=== PATIENT | male | born 1950 | race Caucasian/White ===

== ENCOUNTER → 2017-01-27 | Outpatient (CLI) | payer MEDICARE, OTHER | END | disposition home or self-care (01) | LOC: GMAB 11:11 | PROVIDERS: ATTEND Family Medicine | DX: Z12.5 Encounter for screening for malignant neoplasm of prostate (principal); I10 Essential (primary) hypertension | CPT/HCPCS: 84443; G0103 ==

== ENCOUNTER 2017-03-30 12:48 | Emergency (ER) | payer MEDICARE, OTHER ==
[2017-03-30 13:08] VITALS: BP 132/79; TEMP 97.9; O2SAT 97
--- NOTE | 2017-03-30 13:20 | ED.PDOC ---
History of Present Illness - General Chief Complaint: Lower Extremity Injury Stated Complaint: Left leg pain Time Seen by Provider: 03/30/17 13:09 Source: patient, RN notes reviewed, Vital Signs reviewed Exam Limitations: no limitations - History of Present Illness Initial Comments: Patient comes in with c/o left leg pain for 2 days. Pain extends from foot to hip and her reports his leg feels swollen. In addition to the pain he is having cramping in his thigh. + nausea and feeling "woozy". No KESSLER, CP, SOB, abd pain or vomiting. No numbness, tingling or weakness. He spoke to the home health nurse who recommended that he come in to get checked for a blood clot. Occurred: other - Thursday, 2 days ago Pain - Lower Extremity: moderate: Left Thigh/Hip, Left Leg, Left Knee, Left Calf , Left Ankle, Left Foot Method of Injury: unknown Improving Factors: nothing Worsening Factors: nothing Allergies/Adverse Reactions: Allergies NO KNOWN ALLERGY Allergy (Verified 03/30/17 13:06) Home Medications: Ambulatory Orders ALPRAZolam [Xanax] 0.25 mg PO BEDTIME 11/30/14 Aspirin [Aspirin Childrens] 81 mg PO DAILY 11/30/14 Atorvastatin Calcium [Lipitor] 80 mg PO DAILY 11/30/14 Duloxetine HCl [Cymbalta] 60 mg PO DAILY 11/30/14 Furosemide [Lasix] 20 mg PO DAILY 11/30/14 Gabapentin [Neurontin] 900 mg PO TID 11/30/14 Lisinopril 2.5 mg PO DAILY 11/30/14 Meloxicam [Mobic] 7.5 mg PO DAILY 11/30/14 Acetaminophen W/ Codeine [Tylenol w/Codeine 300-30 mg] 1 tab PO TID PRN Bisacodyl [Dulcolax] 5 mg PO DAILY 06/11/16 Coenzyme Q10 (Ubidecarenone) [Co Q-10] 100 mg PO DAILY 06/11/16 Diphenhydramine HCl (Sleep) [Zzzquil] 50 mg PO BEDTIME 06/11/16 Diphenhydramine HCl [Hm Allergy Relief] 25 mg PO DAILY 06/11/16 Esomeprazole Magnesium [Nexium 24Hr] 20 mg PO DAILY 06/11/16 Misc Natural Products [Osteo Bi-Flex Advanced Do] 1 tab PO DAILY 06/11/16 Multiple Vitamins W/ Minerals [Centrum Silver] 1 ea PO DAILY 06/11/16 Probiotic Product [CodeHS] 1 cap PO DAILY 06/11/16 Valproic Acid 500 mg PO BID 06/11/16 Ciprofloxacin [Cipro] 500 mg PO BID #20 tab 07/20/16 Ondansetron [Zofran Odt] 4 mg PO Q6HRS #30 tab 07/20/16 metroNIDAZOLE [Flagyl] 500 mg PO Q8HRS #30 tab 07/20/16 Review of Systems - Review of Systems Constitutional: States: no symptoms reported Respiratory: States: no symptoms reported Cardiology: States: no symptoms reported Gastrointestinal/Abdominal: States: nausea. Denies: abdominal pain, vomiting Musculoskeletal: States: see HPI Skin: States: no symptoms reported Neurological: States: see HPI. Denies: headache, numbness, paresthesia, tingling, weakness All other Systems: No Change from Baseline Past Medical History (General) - Patient Medical History Hx Seizures: Yes Hx Stroke: No Hx Dementia: No Hx of COPD: No Hx Cardiac Disorders: Yes - [place] 3 years ago, 2 stents placed Hx Congestive Heart Failure: No Hx Hypertension: Yes Hx Diabetes: No Hx Gastroesophageal Reflux: Yes Hx Cancer: No Hx Hepatitis C: No Hx MRSA: Yes Surgical History: other - Vaccination History Hx Tetanus, Diphtheria Vaccination: Yes Hx Influenza Vaccination: Yes Hx Pneumococcal Vaccination: Yes - Social History Hx Tobacco Use: Yes Hx Chewing Tobacco Use: No Hx Alcohol Use: No Hx Substance Use: No Hx Substance Use Treatment: No Hx Depression: No Hx Physical Abuse: No Hx Emotional Abuse: No Hx Suspected Abuse: No - Activities of Daily Living Hospice Agency (if applicable):: None - Female History Patient is a Female of Child Bearing Age (10 -59 yrs old): No Patient : No Family Medical History - Family History Grandparents Family History: Unknown Physical Exam - Physical Exam General Appearance: Alert, Comfortable, No apparent distress, Well Developed, Well Groomed, Well Hydrated, Well Nourished Neck: normal inspection Cardiovascular/Respiratory: regular rate, rhythm, no M/R/G, normal peripheral pulses, no JVD, normal breath sounds, no respiratory distress Gastrointestinal/Abdominal: no organomegaly, tenderness - Mild LLQ tenderness w/ o guarding or rebound Thigh/Hip: soft tissue tenderness - inner and anterior thigh and groin Leg: soft tissue tenderness - calf tenderness, equivical Lyndon sign - no pain but felt tight/swollen to patient Knee: normal inspection, non-tender, no evidence of injury, normal ROM Ankle: normal inspection, non-tender, no evidence of injury, normal ROM Foot: normal inspection, non-tender, no evidence of injury, normal ROM Neuro/Tendon: normal sensation, normal motor functions, normal tendon functions Mental Status: alert, oriented x 3 Skin: normal color, warm/dry Comments: Vital Signs 03/30/17 12:55 Temperature 97.9 F Pulse Rate [ 72 pulse ox] Respiratory 20 Rate Blood Pressure 132/79 [Right Arm] O2 Sat by Pulse 97 Oximetry Progress - Progress Progress: 03/30/17 14:27 Discussed labs and sono results with patient. He would like to go home and rest. Will d/c home with follow up with PCP. - Results/Orders Results/Orders: Laboratory Tests 03/30/17 03/30/17 03/30/17 13:30 13:30 13:30 WBC 14.7 H RBC 4.47 L Hgb 14.5 Hct 43.4 MCV 97.2 H MCH 32.4 H MCHC 33.3 RDW 14.0 Plt Count 378 MPV 8.1 Absolute Neuts (auto) 11.90 H Absolute Lymphs (auto) 1.60 Absolute Monos (auto) 1.10 H Absolute Eos (auto) 0.00 Absolute Basos (auto) 0.00 Neutrophils % 80.8 H Lymphocytes % 11.1 L Monocytes % 7.6 Eosinophils % 0.2 L Basophils % 0.3 D-Dimer, Quantitative 238 H* Sodium 141 Potassium 4.7 Chloride 105 Carbon Dioxide 29 Anion Gap 11.7 L BUN 21 H Creatinine 1.01 BUN/Creatinine Ratio 20.8 H Random Glucose 101 Serum Osmolality 284.4 Calcium 9.1 Total Bilirubin 0.3 AST 50 H ALT 57 Alkaline Phosphatase 69 Serum Total Protein 6.2 L Albumin 3.6 Globulin 2.6 Albumin/Globulin Ratio 1.4 - EKG/XRAY/CT Xray Comments: LLE Doppler: negative per Radiologist Departure - Departure Clinical Impression: Leg pain, diffuse Qualifiers: Laterality: left Qualified Code(s): M79.605 - Pain in left leg Time of Disposition: 14:28 Disposition: Discharge to Home or Self Care Condition: Good Departure Forms: ED Discharge - Pt. Copy, Patient Portal Self Enrollment Instructions: DI for Leg Pain Diet: resume usual diet Activity: increase activity as tolerated Referrals: Joe Castro MD [Primary Care Provider] - 1-2 Weeks Home Medications: Ambulatory Orders ALPRAZolam [Xanax] 0.25 mg PO BEDTIME 11/30/14 Aspirin [Aspirin Childrens] 81 mg PO DAILY 11/30/14 Atorvastatin Calcium [Lipitor] 80 mg PO DAILY 11/30/14 Duloxetine HCl [Cymbalta] 60 mg PO DAILY 11/30/14 Furosemide [Lasix] 20 mg PO DAILY 11/30/14 Gabapentin [Neurontin] 900 mg PO TID 11/30/14 Lisinopril 2.5 mg PO DAILY 11/30/14 Meloxicam [Mobic] 7.5 mg PO DAILY 11/30/14 Acetaminophen W/ Codeine [Tylenol w/Codeine 300-30 mg] 1 tab PO TID PRN Bisacodyl [Dulcolax] 5 mg PO DAILY 06/11/16 Coenzyme Q10 (Ubidecarenone) [Co Q-10] 100 mg PO DAILY 06/11/16 Diphenhydramine HCl (Sleep) [Zzzquil] 50 mg PO BEDTIME 06/11/16 Diphenhydramine HCl [Hm Allergy Relief] 25 mg PO DAILY 06/11/16 Esomeprazole Magnesium [Nexium 24Hr] 20 mg PO DAILY 06/11/16 Misc Natural Products [Osteo Bi-Flex Advanced Do] 1 tab PO DAILY 06/11/16 Multiple Vitamins W/ Minerals [Centrum Silver] 1 ea PO DAILY 06/11/16 Probiotic Product [[employer] [facility]] 1 cap PO DAILY 06/11/16 Valproic Acid 500 mg PO BID 06/11/16 Ciprofloxacin [Cipro] 500 mg PO BID #20 tab 07/20/16 Ondansetron [Zofran Odt] 4 mg PO Q6HRS #30 tab 07/20/16 metroNIDAZOLE [Flagyl] 500 mg PO Q8HRS #30 tab 07/20/16
--- NOTE | 2017-03-30 14:22 | US ---
EXAM DESCRIPTION: Venous,Lower Extremity LT CLINICAL HISTORY: 66 years, Male, LLE pain feels swollen COMPARISON: None. FINDINGS: Left common femoral, superficial femoral, deep femoral, popliteal, posterior tibial and peroneal veins identified. Appropriate flow compressibility and augmentation. IMPRESSION: No evidence deep venous thrombosis left lower extremity. Electronically signed by: Taiwo Garcia MD 03/30/2017 2:20 PM CDT
== END 2017-03-30 14:36 | disposition home or self-care (01) ==
LOC: ER 12:48
DX: M79.605 Pain in left leg (principal); Z87.891 Personal history of nicotine dependence; I25.2 Old myocardial infarction; I10 Essential (primary) hypertension; K21.9 Gastro-esophageal reflux disease without esophagitis; Z98.61 Coronary angioplasty status; Z79.899 Other long term (current) drug therapy; Z79.82 Long term (current) use of aspirin

== ENCOUNTER → 2017-03-31 | Outpatient (CLI) | payer MEDICARE, OTHER | END | disposition home or self-care (01) | LOC: GMAB 14:47 | PROVIDERS: ATTEND Family Medicine | DX: M79.605 Pain in left leg (principal) ==

== ENCOUNTER → 2017-04-29 | Outpatient (CLI) | payer MEDICARE, OTHER | END | disposition home or self-care (01) | LOC: GRHH 10:43 | PROVIDERS: ATTEND Family Medicine | DX: R79.89 Other specified abnormal findings of blood chemistry (principal); I10 Essential (primary) hypertension ==

== ENCOUNTER 2017-08-10 11:40 | Emergency (ER) | payer MEDICARE, OTHER ==
[2017-08-10 12:08] VITALS: TEMP 99
[2017-08-10] MEDS: predniSONE 10 MG TAB PO ONE (13:11)
[2017-08-10] MEDS: HYDROcodone 10MG/APAP 325MG 1 EA TAB PO ONE (13:11)
--- NOTE | 2017-08-10 13:13 | ED.PDOC ---
History of Present Illness - General Chief Complaint: General Stated Complaint: knots on neck, sore throat Time Seen by Provider: 08/10/17 12:28 Source: patient, family Exam Limitations: no limitations - History of Present Illness Initial Comments: PT COMES TO THE ED FOR EVAUATION OF PAINFUL SORES TO THE RIGHT SIDE OF SCALP, RIGHT POSTERIOR NECK AND RIGHT LATERAL NECK REGION X 1 DAY. PT ALSO REPORTS SORE THROAT THAT BEGAN YESTERDAY. PT IS CURRENTLY GETTING VANCOMYCIN THROUGH A PICC LINE FOR A KNEE INFECTION THAT WAS OPERATED ON 1 WEEK AGO. PT WEARING VAC DRESSING TO RIGHT KNEE CURRENTLY. Timing/Duration: 24 hours Severity: moderate Improving Factors: nothing Worsening Factors: other - TOUCHING LESIONS Associated Symptoms: other - PARESTHESIAS TO THE RIGHT ARM. Allergies/Adverse Reactions: Allergies NO KNOWN ALLERGY Allergy (Verified 03/30/17 13:06) Home Medications: Ambulatory Orders ALPRAZolam [Xanax] 0.25 mg PO BEDTIME 11/30/14 Aspirin [Aspirin Childrens] 81 mg PO DAILY 11/30/14 Atorvastatin Calcium [Lipitor] 80 mg PO DAILY 11/30/14 Duloxetine HCl [Cymbalta] 60 mg PO DAILY 11/30/14 Furosemide [Lasix] 20 mg PO DAILY 11/30/14 Gabapentin [Neurontin] 900 mg PO TID 11/30/14 Lisinopril 2.5 mg PO DAILY 11/30/14 Meloxicam [Mobic] 7.5 mg PO DAILY 11/30/14 Acetaminophen W/ Codeine [Tylenol w/Codeine 300-30 mg] 1 tab PO TID PRN Bisacodyl [Dulcolax] 5 mg PO DAILY 06/11/16 Coenzyme Q10 (Ubidecarenone) [Co Q-10] 100 mg PO DAILY 06/11/16 Diphenhydramine HCl (Sleep) [Zzzquil] 50 mg PO BEDTIME 06/11/16 Diphenhydramine HCl [Hm Allergy Relief] 25 mg PO DAILY 06/11/16 Esomeprazole Magnesium [Nexium 24Hr] 20 mg PO DAILY 06/11/16 Misc Natural Products [Osteo Bi-Flex Advanced Do] 1 tab PO DAILY 06/11/16 Multiple Vitamins W/ Minerals [Centrum Silver] 1 ea PO DAILY 06/11/16 Probiotic Product [[facility] [employer] [facility]] 1 cap PO DAILY 06/11/16 Valproic Acid 500 mg PO BID 06/11/16 Ciprofloxacin [Cipro] 500 mg PO BID #20 tab 07/20/16 Ondansetron [Zofran Odt] 4 mg PO Q6HRS #30 tab 07/20/16 metroNIDAZOLE [Flagyl] 500 mg PO Q8HRS #30 tab 07/20/16 Methylprednisolone [Medrol Dose Nic] 4 mg PO DAILY #1 pack 08/10/17 Nystatin (Topical) [Nystatin] 5 ml TOP QID 14 Days #1 ml 08/10/17 Valacyclovir HCl [Valtrex] 1 gm PO TID 14 Days #42 tab 08/10/17 Review of Systems - Review of Systems Constitutional: Denies: chills, fever EENTM: States: see HPI, throat pain. Denies: nose congestion Respiratory: Denies: cough, short of breath Cardiology: Denies: chest pain, palpitations Gastrointestinal/Abdominal: Denies: abdominal pain, nausea, vomiting Skin: States: see HPI, change in color, lesions, lumps Neurological: States: see HPI, paresthesia. Denies: headache Past Medical History (General) - Patient Medical History Hx Seizures: Yes Hx Stroke: No Hx Dementia: No Hx of COPD: No Hx Cardiac Disorders: Yes - [place] 3 years ago, 2 stents placed Hx Congestive Heart Failure: No Hx Hypertension: Yes Hx Diabetes: No Hx Gastroesophageal Reflux: Yes Hx Cancer: No Hx Hepatitis C: No Hx MRSA: Yes Surgical History: other - Vaccination History Hx Tetanus, Diphtheria Vaccination: Yes Hx Influenza Vaccination: Yes Hx Pneumococcal Vaccination: Yes - Social History Hx Tobacco Use: Yes Hx Chewing Tobacco Use: No Hx Alcohol Use: No Hx Substance Use: No Hx Substance Use Treatment: No Hx Depression: No Hx Physical Abuse: No Hx Emotional Abuse: No Hx Suspected Abuse: No - Female History Patient : No Family Medical History - Family History Grandparents Family History: Unknown Physical Exam - Physical Exam General Appearance: Alert, No apparent distress, Well Developed, Well Groomed, Well Hydrated Eye Exam: bilateral normal Ears, Nose, Throat: hearing grossly normal, pharyngeal erythema, other - SEVERAL SMALL WHITE PLAQUES TO SOFT PALLETE AND TONSILS B/L Neck: full range of motion, supple, other - TENDER ERTHEMATOUS PAPULAR LESIONS LOCATED ON RIGHT POSTERIOR AND LATERAL NECK, AND RIGHT TEMPORAL SCALP IN A DERMATOMAL DISTRIBUTION Respiratory: lungs clear, normal breath sounds, no respiratory distress Cardiovascular/Chest: regular rate, rhythm, no murmur Gastrointestinal/Abdominal: non tender, soft Extremity: normal range of motion, non-tender, other - VAC WOUND DRESSING TO ANTERIOR ASPECT OF RIGHT KNEE, NO SIGNIFICANT TENDERNESS OR SURROUNDING ERYTHEMA. Neurologic: no motor/sensory deficits, alert, normal mood/affect, oriented x 3 Skin Exam: normal color, warm/dry Lymphatic: no adenopathy Progress - Progress Progress: 08/10/17 13:26 LAB FINDINGS DISCUSSED WITH PATIENT. PT REPORTS IMPROVEMENT IN PAIN AFTER NORCO. WILL D/C HOME WITH STEROID TAPER, VALTREX AND [facility] ORAL SOLUTION. - Results/Orders Results/Orders: 08/10/17 12:55 STREP A SCREEN CULTURE Stat Laboratory Results - last 24 hr 08/10/17 12:55 Group A Strep Rapid Cancelled Group A Strep DNA Negative Departure - Departure Clinical Impression: Thrush, oral Shingles outbreak Qualifiers: Herpes zoster complications: without complications Qualified Code(s): B02.9 - Zoster without complications Time of Disposition: 13:34 Disposition: Discharge to Home or Self Care Condition: Good Departure Forms: ED Discharge - Pt. Copy, Patient Portal Self Enrollment Instructions: DI for Shingles, DI for Thrush Referrals: Joe Castro MD [Primary Care Provider] - 1-5 Days Prescriptions: Methylprednisolone [Medrol Dose Nic] 4 mg PO DAILY #1 pack Nystatin (Topical) [Nystatin] 5 ml TOP QID 14 Days #1 ml Valacyclovir HCl [Valtrex] 1 gm PO TID 14 Days #42 tab Home Medications: Ambulatory Orders ALPRAZolam [Xanax] 0.25 mg PO BEDTIME 11/30/14 Aspirin [Aspirin Childrens] 81 mg PO DAILY 11/30/14 Atorvastatin Calcium [Lipitor] 80 mg PO DAILY 11/30/14 Duloxetine HCl [Cymbalta] 60 mg PO DAILY 11/30/14 Furosemide [Lasix] 20 mg PO DAILY 11/30/14 Gabapentin [Neurontin] 900 mg PO TID 11/30/14 Lisinopril 2.5 mg PO DAILY 11/30/14 Meloxicam [Mobic] 7.5 mg PO DAILY 11/30/14 Acetaminophen W/ Codeine [Tylenol w/Codeine 300-30 mg] 1 tab PO TID PRN Bisacodyl [Dulcolax] 5 mg PO DAILY 06/11/16 Coenzyme Q10 (Ubidecarenone) [Co Q-10] 100 mg PO DAILY 06/11/16 Diphenhydramine HCl (Sleep) [Zzzquil] 50 mg PO BEDTIME 06/11/16 Diphenhydramine HCl [Hm Allergy Relief] 25 mg PO DAILY 06/11/16 Esomeprazole Magnesium [Nexium 24Hr] 20 mg PO DAILY 06/11/16 Misc Natural Products [Osteo Bi-Flex Advanced Do] 1 tab PO DAILY 06/11/16 Multiple Vitamins W/ Minerals [Centrum Silver] 1 ea PO DAILY 06/11/16 Probiotic Product [documistic] 1 cap PO DAILY 06/11/16 Valproic Acid 500 mg PO BID 06/11/16 Ciprofloxacin [Cipro] 500 mg PO BID #20 tab 07/20/16 Ondansetron [Zofran Odt] 4 mg PO Q6HRS #30 tab 07/20/16 metroNIDAZOLE [Flagyl] 500 mg PO Q8HRS #30 tab 07/20/16 Methylprednisolone [Medrol Dose Nic] 4 mg PO DAILY #1 pack 08/10/17 Nystatin (Topical) [Nystatin] 5 ml TOP QID 14 Days #1 ml 08/10/17 Valacyclovir HCl [Valtrex] 1 gm PO TID 14 Days #42 tab 08/10/17
[2017-08-10 14:15] VITALS: BP 123/81; O2SAT 98
== END 2017-08-10 14:14 | disposition home or self-care (01) ==
LOC: ER 11:40
DX: B37.0 Candidal stomatitis (principal); B02.9 Zoster without complications; Z87.891 Personal history of nicotine dependence; I25.2 Old myocardial infarction; I10 Essential (primary) hypertension; K21.9 Gastro-esophageal reflux disease without esophagitis; Z79.899 Other long term (current) drug therapy; Z79.82 Long term (current) use of aspirin
CPT/HCPCS: 87070; 87651; J7512

== ENCOUNTER → 2017-09-15 | Outpatient (CLI) | payer MEDICARE, OTHER | END | disposition home or self-care (01) | LOC: GRHH 14:48 | PROVIDERS: ATTEND Family Medicine | DX: T81.4XXA Infection following a procedure, initial encounter (principal) ==

== ENCOUNTER → 2017-10-13 | Outpatient (CLI) | payer MEDICARE, OTHER | LOC: LAB.O 08:23 | PROVIDERS: ATTEND Orthopaedic Surgery Sports Medicine | DX: G40.009 Localization-related (focal) (partial) idiopathic epilepsy and epileptic syndromes with seizures of localized onset, not intractable, without status epilepticus (principal); M17.12 Unilateral primary osteoarthritis, left knee ==

== ENCOUNTER 2017-11-11 15:27 | Emergency (ER) | payer MEDICARE, OTHER ==
[2017-11-11 15:48] VITALS: TEMP 98.9
--- NOTE | 2017-11-11 15:51 | ED.PDOC ---
History of Present Illness - General Chief Complaint: Lower Extremity Injury Stated Complaint: Injured RLE Time Seen by Provider: 11/11/17 15:36 Source: patient Exam Limitations: no limitations - History of Present Illness Initial Comments: Jack Nix 67 y/o male stated that [place] and fell on his left side with sharp pain on his right knee with pain on weight bearing after incident.Denies any other areas of injuries-no hip pains. Occurred: just prior to arrival Pain - Lower Extremity: moderate: Right Knee Method of Injury: other - see hpi Improving Factors: rest Worsening Factors: movement Allergies/Adverse Reactions: Allergies Morphine Adverse Reaction (Mild, Verified 11/11/17 15:47) Makes him itch Home Medications: Ambulatory Orders ALPRAZolam [Xanax] 0.25 mg PO BEDTIME 11/30/14 Aspirin [Aspirin Childrens] 81 mg PO DAILY 11/30/14 Atorvastatin Calcium [Lipitor] 80 mg PO DAILY 11/30/14 Duloxetine HCl [Cymbalta] 60 mg PO DAILY 11/30/14 Furosemide [Lasix] 20 mg PO DAILY 11/30/14 Gabapentin [Neurontin] 900 mg PO TID 11/30/14 Lisinopril 2.5 mg PO DAILY 11/30/14 Meloxicam [Mobic] 7.5 mg PO DAILY 11/30/14 Acetaminophen W/ Codeine [Tylenol w/Codeine 300-30 mg] 1 tab PO TID PRN Bisacodyl [Dulcolax] 5 mg PO DAILY 06/11/16 Coenzyme Q10 (Ubidecarenone) [Co Q-10] 100 mg PO DAILY 06/11/16 Diphenhydramine HCl [Hm Allergy Relief] 25 mg PO DAILY 06/11/16 Esomeprazole Magnesium [Nexium 24Hr] 20 mg PO DAILY 06/11/16 Misc Natural Products [Osteo Bi-Flex Advanced Do] 1 tab PO DAILY 06/11/16 Multiple Vitamins W/ Minerals [Centrum Silver] 1 ea PO DAILY 06/11/16 Probiotic Product [[employer] [facility]] 1 cap PO DAILY 06/11/16 Acetamin W/Cod #3 Tab [Tylenol w/CODEINE #3] 1 ea PO Q4HR PRN #30 tab 11/11/17 Cephalexin 1,000 mg PO BID #30 cap 11/11/17 Levetiracetam 500 mg PO BID 11/11/17 Phenytoin Sodium Cap Extended [Dilantin Cap] 300 mg PO BEDTIME 11/11/17 Review of Systems - Review of Systems Constitutional: States: no symptoms reported EENTM: States: no symptoms reported Respiratory: States: no symptoms reported Cardiology: States: no symptoms reported Gastrointestinal/Abdominal: States: no symptoms reported Genitourinary: States: no symptoms reported Musculoskeletal: States: see HPI Skin: States: no symptoms reported Neurological: States: no symptoms reported Past Medical History (General) - Patient Medical History Hx Seizures: Yes Hx Stroke: No Hx Dementia: No Hx of COPD: No Hx Cardiac Disorders: Yes - [place] 3 years ago, 2 stents placed Hx Congestive Heart Failure: No Hx Hypertension: Yes Hx Diabetes: No Hx Gastroesophageal Reflux: Yes Hx Cancer: No Hx Hepatitis C: No Hx MRSA: Yes Surgical History: appendectomy, cholecystectomy, other - cardiac stent,right knee with multiple surgeries - Vaccination History Hx Tetanus, Diphtheria Vaccination: Yes - one year ago Hx Influenza Vaccination: Yes Hx Pneumococcal Vaccination: Yes - Social History Hx Tobacco Use: Yes Hx Chewing Tobacco Use: No Hx Alcohol Use: No Hx Substance Use: No Hx Substance Use Treatment: No Hx Depression: No Hx Physical Abuse: No Hx Emotional Abuse: No Hx Suspected Abuse: No - Activities of Daily Living Home Health Agency (if applicable): [facility] - Female History Patient : No Family Medical History - Family History Grandparents Family History: Unknown Hx Cardiac Disease: Yes - dad- [place] Physical Exam - Physical Exam General Appearance: Alert, Comfortable, No apparent distress Eyes, Ears, Nose, Throat: PERRL/EOMI, normal ENT inspection Neck: non-tender, full range of motion, supple Cardiovascular/Respiratory: regular rate, rhythm, no M/R/G, normal peripheral pulses Gastrointestinal/Abdominal: non-tender, no organomegaly Back: no CVA tenderness, no vertebral tenderness Thigh/Hip: normal inspection, non-tender, no evidence of injury Leg: normal inspection, non-tender, no evidence of injury Knee: bone tenderness - right knee cap, joint effusion - right suprapatellar bursa, pain, soft tissue tenderness Ankle: normal inspection, non-tender, no evidence of injury Foot: normal inspection, non-tender, no evidence of injury Progress - Progress Progress: 11/11/17 16:16 Vital Signs - 8 hr 11/11/17 15:35 Temperature 98.9 F Pulse Rate [ 96 H pulse ox] Respiratory 20 Rate Blood Pressure 100/68 [Right Arm] O2 Sat by Pulse 97 Oximetry - EKG/XRAY/CT XRAY: knee - non displaced fracture medial condyle right femur Departure - Departure Clinical Impression: Fracture of femur Qualifiers: Encounter type: initial encounter Femur location: medial condyle Fracture type : closed Fracture alignment: nondisplaced Laterality: right Qualified Code(s): S72.434A - Nondisplaced fracture of medial condyle of right femur, initial encounter for closed fracture Injury caused by animal Qualifiers: Encounter type: initial encounter Qualified Code(s): W64.XXXA - Exposure to other animate mechanical forces, initial encounter Knee pain, acute Qualifiers: Laterality: right Qualified Code(s): M25.561 - Pain in right knee Time of Disposition: 17:15 Disposition: Discharge to Home or Self Care Condition: Fair Departure Forms: ED Discharge - Pt. Copy, Patient Portal Self Enrollment Instructions: DI for Femoral Fracture Referrals: Joe Castro MD [Primary Care Provider] - 1-2 Weeks Prescriptions: Acetamin W/Cod #3 Tab [Tylenol w/CODEINE #3] 1 ea PO Q4HR PRN #30 tab PRN Reason: Pain Cephalexin 1,000 mg PO BID #30 cap Home Medications: Ambulatory Orders ALPRAZolam [Xanax] 0.25 mg PO BEDTIME 11/30/14 Aspirin [Aspirin Childrens] 81 mg PO DAILY 11/30/14 Atorvastatin Calcium [Lipitor] 80 mg PO DAILY 11/30/14 Duloxetine HCl [Cymbalta] 60 mg PO DAILY 11/30/14 Furosemide [Lasix] 20 mg PO DAILY 11/30/14 Gabapentin [Neurontin] 900 mg PO TID 11/30/14 Lisinopril 2.5 mg PO DAILY 11/30/14 Meloxicam [Mobic] 7.5 mg PO DAILY 11/30/14 Acetaminophen W/ Codeine [Tylenol w/Codeine 300-30 mg] 1 tab PO TID PRN Bisacodyl [Dulcolax] 5 mg PO DAILY 06/11/16 Coenzyme Q10 (Ubidecarenone) [Co Q-10] 100 mg PO DAILY 06/11/16 Diphenhydramine HCl [Hm Allergy Relief] 25 mg PO DAILY 06/11/16 Esomeprazole Magnesium [Nexium 24Hr] 20 mg PO DAILY 06/11/16 Misc Natural Products [Osteo Bi-Flex Advanced Do] 1 tab PO DAILY 06/11/16 Multiple Vitamins W/ Minerals [Centrum Silver] 1 ea PO DAILY 06/11/16 Probiotic Product [Contents First] 1 cap PO DAILY 06/11/16 Acetamin W/Cod #3 Tab [Tylenol w/CODEINE #3] 1 ea PO Q4HR PRN #30 tab 11/11/17 Cephalexin 1,000 mg PO BID #30 cap 11/11/17 Levetiracetam 500 mg PO BID 11/11/17 Phenytoin Sodium Cap Extended [Dilantin Cap] 300 mg PO BEDTIME 11/11/17 Additional Instructions: Keep appointment with ORTHOPEDIST in am 11/12/2017
[2017-11-11] MEDS ORDERED: HYDROcodone 10MG/APAP 325MG 1 EA TAB PO ONE (16:17)
[2017-11-11] MEDS ORDERED: CEPHALEXIN MONOHYDRATE 500 MG CAP PO ONE (16:17)
--- NOTE | 2017-11-11 16:19 | RAD ---
EXAM DESCRIPTION: Knee,Right 2 or More Views CLINICAL HISTORY: trauma, kicked by a cow COMPARISON: None. TECHNIQUE: 2 views right FINDINGS: A total knee arthroplasty is observed in place. A relatively nondisplaced fracture of the medial condyle of the distal right humerus is observed. IMPRESSION: A fracture of the medial distal femoral condyle is observed. The patient is post right total knee arthroplasty. Electronically signed by: Dez Killian MD 11/11/2017 4:18 PM [facility]
[2017-11-11 17:43] VITALS: BP 114/76; O2SAT 96
== END 2017-11-11 17:44 | disposition home or self-care (01) ==
LOC: ER 15:27
DX: S72.434A Nondisplaced fracture of medial condyle of right femur, initial encounter for closed fracture (principal); I25.2 Old myocardial infarction; I10 Essential (primary) hypertension; K21.9 Gastro-esophageal reflux disease without esophagitis; Z98.61 Coronary angioplasty status; Z87.891 Personal history of nicotine dependence; W55.22XA Struck by cow, initial encounter; Y92.79 Other farm location as the place of occurrence of the external cause

== ENCOUNTER → 2018-01-21 | Outpatient (CLI) | payer MEDICARE, OTHER | LOC: GRHH 10:30 | PROVIDERS: ATTEND Family Medicine | DX: I10 Essential (primary) hypertension (principal); R94.5 Abnormal results of liver function studies ==

== ENCOUNTER → 2018-02-11 | Outpatient (CLI) | payer MEDICARE, OTHER ==
--- NOTE | 2018-02-12 08:42 | US ---
EXAM DESCRIPTION: Venous,Lower Extremity LT: ULTRASOUND. CLINICAL HISTORY: left artificial knee joint COMPARISON: Ultrasound duplex venous left lower extremity 03/30/2017. TECHNIQUE: Two -dimensional and doppler sonographic evaluation of the deep venous system of the left lower extremity. FINDINGS: Doppler evaluation shows normal color flow and normal phasicity and augmentation of the left common femoral vein, left femoral vein, popliteal vein, greater saphenous vein, peroneal, and posterior tibial vein. The left lower extremity deep veins showed normal occlusion with transducer pressure. Two-dimensional survey showed no echogenic thrombus within these veins. 2 large lymph nodes with normal morphology are noted in the left groin measuring 2.3 x 0.9 x 0.6 cm and 2.4 x 1.9 x 0.9 cm. Other lymph nodes are also present. Central vascularity. IMPRESSION: 1. Duplex ultrasound evaluation of the left lower extremity deep venous system showing no evidence of thrombosis or embolism. 2. Multiple enlarged nodes in the left groin with normal vascularity and normal morphology. Electronically signed by: John Mittal MD 02/12/2018 8:41 AM CDT
== END ==
LOC: US 11:29
PROVIDERS: ATTEND Orthopaedic Surgery Sports Medicine
DX: Z96.652 Presence of left artificial knee joint (principal)

== ENCOUNTER → 2018-05-11 | Outpatient (CLI) | payer MEDICARE, OTHER ==
--- NOTE | 2018-05-11 08:57 | MRI ---
EXAM DESCRIPTION: Lumbar Spine w/o Contrast CLINICAL HISTORY: 67 years, Male, LOW BACK PAIN COMPARISON: MRI lumbar spine July 01, 2016 TECHNIQUE: Multiplanar multi sequence images of the lumbar spine were obtained without gadolinium contrast. FINDINGS: Minimal grade 1 retrolisthesis at L5-S1, stable. Vertebral body height and alignment are otherwise well maintained. Mild Modic type I discogenic endplate signal changes at several levels in the lumbar spine, not significantly changed from the previous. The conus lies posterior to the L1-2 disc, and the cauda equina is unremarkable. The paraspinal and visualized retroperitoneal soft tissues are unremarkable. At L1-2, there is disc desiccation with concentric disc bulging, bilateral facet joint degeneration and ligamentum flavum thickening resulting in moderate bilateral neural foraminal and mild central canal stenosis, slightly worse from the prior exam. Disc material approaches and possibly abuts the exiting L1 nerve roots bilaterally. At L2-3, there is disc desiccation with concentric disc bulging, bilateral facet joint degeneration and ligament flavum thickening resulting in moderate to moderately advanced bilateral neural foraminal and moderate central canal stenosis, also worse from the prior exam. Disc material approaches and likely abuts the exiting L2 nerve roots bilaterally. At L3-4, there is loss of intervertebral disc height with disc desiccation, concentric disc bulging, bilateral facet joint degeneration and ligament flavum thickening resulting in fairly advanced bilateral neural foraminal and central canal stenosis, not significantly changed from the previous exam. Disc material approaches but only questionably abuts the exiting L3 nerve roots bilaterally. At L4-5, there is disc desiccation with loss of intervertebral disc height, concentric disc bulging, bilateral facet joint degeneration and ligament flavum thickening resulting in fairly advanced bilateral neural foraminal and central canal stenosis, not significantly changed from the previous exam. Disc material approaches and possibly abuts the exiting L4 nerve roots bilaterally, also stable. At L5-S1, there is disc desiccation with concentric disc bulging, bilateral facet joint degeneration and ligament flavum thickening resulting in severe bilateral neural foraminal stenosis, stable. Advanced central canal stenosis appears slightly worse from the prior study. Disc material likely abuts the exiting L5 nerve roots bilaterally with possible additional abutment of the descending S1 nerve roots in the lateral recesses bilaterally. A posterior left paramidline annular tear is stable. IMPRESSION: Advanced multilevel degenerative changes including disc bulging and facet joint degeneration resulting in central canal stenosis, neural foraminal stenosis and nerve root abutment as detailed above. Overall, findings are slightly worse from June,. Electronically signed by: Cabrera Johnson MD 05/11/2018 8:56 AM CDT
== END ==
LOC: MRI 08:00
PROVIDERS: ATTEND Family Medicine
DX: M51.36 Other intervertebral disc degeneration, lumbar region (principal); M51.26 Other intervertebral disc displacement, lumbar region

== ENCOUNTER → 2018-06-24 | Outpatient (CLI) | payer MEDICARE, OTHER | LOC: LAB.O 10:43 | PROVIDERS: ATTEND Orthopaedic Surgery Sports Medicine | DX: S72.431 Displaced fracture of medial condyle of right femur (principal); M25.561 Pain in right knee; Z96.652 Presence of left artificial knee joint ==

== ENCOUNTER → 2018-08-30 | Outpatient (CLI) | payer MEDICARE, OTHER | LOC: BFHH 09:50 | PROVIDERS: ATTEND Orthopaedic Surgery Adult Reconstructive Orthopaedic Surgery | DX: T84.53XA Infection and inflammatory reaction due to internal right knee prosthesis, initial encounter (principal); Z51.81 Encounter for therapeutic drug level monitoring ==

== ENCOUNTER → 2018-09-02 | Outpatient (CLI) | payer MEDICARE, OTHER | LOC: BFHH 11:01 | PROVIDERS: ATTEND Orthopaedic Surgery Adult Reconstructive Orthopaedic Surgery | DX: T84.53XA Infection and inflammatory reaction due to internal right knee prosthesis, initial encounter (principal); Z51.81 Encounter for therapeutic drug level monitoring ==

== ENCOUNTER → 2018-09-10 | Outpatient (CLI) | payer MEDICARE, OTHER | LOC: BFHH 10:51 | PROVIDERS: ATTEND Orthopaedic Surgery Adult Reconstructive Orthopaedic Surgery | DX: B95.8 Unspecified staphylococcus as the cause of diseases classified elsewhere (principal); Z51.81 Encounter for therapeutic drug level monitoring ==

== ENCOUNTER → 2018-09-23 | Outpatient (CLI) | payer MEDICARE, OTHER | LOC: TMH 09-06 13:22 → BFHH 09:57 | PROVIDERS: ATTEND Internal Medicine Infectious Disease | DX: T84.53XA Infection and inflammatory reaction due to internal right knee prosthesis, initial encounter (principal); Z51.81 Encounter for therapeutic drug level monitoring ==

== ENCOUNTER → 2018-09-27 | Outpatient (CLI) | payer MEDICARE, OTHER | LOC: BFHH 09:30 | PROVIDERS: ATTEND Orthopaedic Surgery Adult Reconstructive Orthopaedic Surgery | DX: T84.53XA Infection and inflammatory reaction due to internal right knee prosthesis, initial encounter (principal); Z51.81 Encounter for therapeutic drug level monitoring ==

== ENCOUNTER → 2018-09-30 | Outpatient (CLI) | payer MEDICARE, OTHER | LOC: BFHH 08:42 | PROVIDERS: ATTEND Psychiatry & Neurology Neurology with Special Qualifications in Child Neurology | DX: T84.53XA Infection and inflammatory reaction due to internal right knee prosthesis, initial encounter (principal); Z51.81 Encounter for therapeutic drug level monitoring ==

== ENCOUNTER → 2018-10-04 | Outpatient (CLI) | payer MEDICARE, OTHER | LOC: BFHH 09:14 | PROVIDERS: ATTEND Orthopaedic Surgery Adult Reconstructive Orthopaedic Surgery | DX: T84.53XA Infection and inflammatory reaction due to internal right knee prosthesis, initial encounter (principal); Z51.81 Encounter for therapeutic drug level monitoring ==

== ENCOUNTER → 2018-10-08 | Outpatient (CLI) | payer MEDICARE, OTHER | LOC: BFHH 11:34 | PROVIDERS: ATTEND Psychiatry & Neurology Neurology with Special Qualifications in Child Neurology | DX: T84.53XA Infection and inflammatory reaction due to internal right knee prosthesis, initial encounter (principal); Z51.81 Encounter for therapeutic drug level monitoring ==

== ENCOUNTER → 2018-10-13 | Outpatient (CLI) | payer MEDICARE, OTHER | LOC: BFHH 14:52 | PROVIDERS: ATTEND Orthopaedic Surgery Adult Reconstructive Orthopaedic Surgery | DX: B95.62 Methicillin resistant Staphylococcus aureus infection as the cause of diseases classified elsewhere (principal); T84.53XA Infection and inflammatory reaction due to internal right knee prosthesis, initial encounter ==

== ENCOUNTER → 2018-10-25 | Outpatient (CLI) | payer MEDICARE, OTHER | LOC: BFHH 12:25 | PROVIDERS: ATTEND Internal Medicine Infectious Disease | DX: B95.62 Methicillin resistant Staphylococcus aureus infection as the cause of diseases classified elsewhere (principal); T84.53XA Infection and inflammatory reaction due to internal right knee prosthesis, initial encounter; T84.032A Mechanical loosening of internal right knee prosthetic joint, initial encounter ==

== ENCOUNTER → 2018-11-01 | Outpatient (CLI) | payer MEDICARE, OTHER | LOC: BFHH 11:44 | PROVIDERS: ATTEND Internal Medicine Infectious Disease | DX: T84.53XA Infection and inflammatory reaction due to internal right knee prosthesis, initial encounter (principal); B95.62 Methicillin resistant Staphylococcus aureus infection as the cause of diseases classified elsewhere; I10 Essential (primary) hypertension ==

== ENCOUNTER → 2018-11-22 | Outpatient (CLI) | payer MEDICARE, OTHER | LOC: BFHH 13:17 | PROVIDERS: ATTEND Orthopaedic Surgery Adult Reconstructive Orthopaedic Surgery | DX: I10 Essential (primary) hypertension (principal); B95.62 Methicillin resistant Staphylococcus aureus infection as the cause of diseases classified elsewhere; T84.53XD Infection and inflammatory reaction due to internal right knee prosthesis, subsequent encounter ==

== ENCOUNTER → 2018-11-29 | Outpatient (CLI) | payer MEDICARE, OTHER | LOC: BFHH 10:20 | PROVIDERS: ATTEND Internal Medicine Infectious Disease | DX: T84.53XD Infection and inflammatory reaction due to internal right knee prosthesis, subsequent encounter (principal); Z51.81 Encounter for therapeutic drug level monitoring ==

== ENCOUNTER → 2018-12-06 | Outpatient (CLI) | payer MEDICARE, OTHER | LOC: BFHH 10:35 | PROVIDERS: ATTEND Family Medicine | DX: T84.53XD Infection and inflammatory reaction due to internal right knee prosthesis, subsequent encounter (principal); B95.62 Methicillin resistant Staphylococcus aureus infection as the cause of diseases classified elsewhere; I10 Essential (primary) hypertension ==

== ENCOUNTER → 2018-12-13 | Outpatient (CLI) | payer MEDICARE, OTHER | LOC: BFHH 10:12 | PROVIDERS: ATTEND Internal Medicine Infectious Disease | DX: T84.53XA Infection and inflammatory reaction due to internal right knee prosthesis, initial encounter (principal); Z51.81 Encounter for therapeutic drug level monitoring ==

== ENCOUNTER → 2018-12-22 | Outpatient (CLI) | payer MEDICARE, OTHER | LOC: BFHH 16:13 | PROVIDERS: ATTEND Family Medicine | DX: T84.53XA Infection and inflammatory reaction due to internal right knee prosthesis, initial encounter (principal); Z51.81 Encounter for therapeutic drug level monitoring ==